=== PATIENT | female | born 1995 | race American Indian/Alaskan Native ===

== ENCOUNTER 2018-02-21 09:59 | Emergency (ER) | payer MEDICAID ==
[2018-02-21 09:59] VITALS: BMI 26.4
[2018-02-21] MEDS ORDERED: Sodium Chloride 0.9% 1,000 ML IV STA (10:23)
--- NOTE | 2018-02-21 10:32 | ED PDOC ---
Arrival/HPI - General Historian: Patient - History of Present Illness Time/Duration: 1-3 hours Symptom Onset: Sudden Activities at Onset: Light Context: Work <Juliana Gomez - Last Filed: 02/21/18 16:58> <German Walters - Last Filed: 02/21/18 18:54> - General Time Seen by Provider: 02/21/18 10:02 - History of Present Illness Narrative History of Present Illness (Text): 02/21/18 10:26 This is a 22 year old female with PMH of iron deficiency anemia presenting to the ED via ambulence for near syncope episode at work this morning. Patient was standing doing light work, had tunnel vision and diaphoresis and felt that she was going to pass out. Patient did not have LOC. She states she had similar episodes several times in the past due to her anemia. She recovered from a cold last week. Mother also has iron deficiency anemia. LMP was February 06. She denies vaginal bleeding, CP, SOB, abdominal pain, urinary symptoms, headaches, fevers, chills, nausea and vomiting. PMD is Dr. Poli Barreto (Juliana Gomez) Past Medical History - Provider Review Nursing Documentation Reviewed: Yes - Infectious Disease Hx of Infectious Diseases: None - Tetanus Immunization Tetanus Immunization: Unknown - Cardiac Hx Cardiac Disorders: No - Pulmonary Hx Respiratory Disorders: No - Neurological Hx Neurological Disorder: No - HEENT Hx HEENT Disorder: No - Renal Hx Renal Disorder: No - Endocrine/Metabolic Hx Endocrine Disorders: No - Hematological/Oncological Hx Anemia: Yes (Iron Deficient) - Integumentary Hx Dermatological Disorder: No - Musculoskeletal/Rheumatological Hx Musculoskeletal Disorders: No - Gastrointestinal Hx Gastrointestinal Disorders: No - Genitourinary/Gynecological Hx Genitourinary Disorders: No - Psychiatric Hx Psychophysiologic Disorder: No Hx Substance Use: Yes (marajuana (yesterday)) - Anesthesia Hx Anesthesia: No <Juliana Gomez - Last Filed: 02/21/18 16:58> Family/Social History - Physician Review Nursing Documentation Reviewed: Yes Family/Social History: Other (Mother has iron deficiency anemia) Smoking Status: Current Some Days Smoker Hx Alcohol Use: No Hx Substance Use: Yes (marajuana (yesterday)) <Juliana Gomez - Last Filed: 02/21/18 16:58> Allergies/Home Meds <Juliana Gomez - Last Filed: 02/21/18 16:58> <German Walters - Last Filed: 02/21/18 18:54> Allergies/Adverse Reactions: Allergies No Known Allergies Allergy (Verified 02/21/18 10:10) Review of Systems - Physician Review All systems were reviewed & negative as marked: Yes - Review of Systems Constitutional: Normal. absent: Fatigue, Fevers Eyes: Normal. absent: Vision Changes ENT: Normal. absent: Hearing Changes Respiratory: Normal. absent: SOB Cardiovascular: Normal. absent: Chest Pain, Palpitations Gastrointestinal: Normal Genitourinary Female: Normal. absent: Dysuria, Hematuria, Vaginal Bleeding Musculoskeletal: Normal. absent: Arthralgias Skin: Normal. absent: Rash Neurological: Normal. absent: Headache, Dizziness, Focal Weakness, Facial Droop Endocrine: Normal Hemo/Lymphatic: Normal Psychiatric: Normal. absent: Anxiety <Juliana Gomez - Last Filed: 02/21/18 16:58> Physical Exam Vital Signs Reviewed: Yes Temperature: Afebrile Blood Pressure: Normal Pulse: Regular Respiratory Rate: Normal Appearance: Positive for: Well-Appearing, Non-Toxic, Comfortable Pain Distress: None Mental Status: Positive for: Alert and Oriented X 3 Finger Stick Blood Glucose: 80 - Systems Exam Head: Present: Atraumatic, Normocephalic Pupils: Present: PERRL Extroacular Muscles: Present: EOMI Conjunctiva: Present: Normal Mouth: Present: Moist Mucous Membranes Neck: Present: Normal Range of Motion Respiratory/Chest: Present: Clear to Auscultation, Good Air Exchange. No: Respiratory Distress, Accessory Muscle Use Cardiovascular: Present: Regular Rate and Rhythm, Normal S1, S2. No: Murmurs Abdomen: No: Tenderness, Distention, Peritoneal Signs Back: Present: Normal Inspection Upper Extremity: Present: Normal Inspection. No: Cyanosis, Edema Lower Extremity: Present: Normal Inspection. No: Edema Neurological: Present: Speech Normal, Motor Func Grossly Intact, Normal Sensory Function Skin: Present: Warm, Dry, Other (mild conjunctival pallor noted in eyes). No: Rashes Psychiatric: Present: Alert, Oriented x 3, Normal Insight, Normal Concentration <Juliana Gomez Last Filed: 02/21/18 16:58> Vital Signs Temp Pulse Resp BP Pulse Ox 02/21/18 16:07 98.3 F 85 18 108/76 99 02/21/18 16:06 98.3 F 85 18 108/76 99 02/21/18 13:48 98.2 F 87 17 109/71 02/21/18 13:47 98.4 F 89 17 109/70 99 02/21/18 13:46 98.5 F 89 17 109/70 02/21/18 12:59 98 F 77 17 96/61 L 02/21/18 12:44 98 F 88 18 122/69 02/21/18 12:34 98 F 88 18 122/69 97 02/21/18 12:13 85 19 120/61 98 02/21/18 10:06 97.4 F L 93 H 17 103/51 L 96 Medical Decision Making <Juliana Gomez - Last Filed: 02/21/18 16:58> <German Walters - Last Filed: 02/21/18 18:54> ED Course and Treatment: 02/21/18 10:35 This is a 22 year old female with PMH of iron deficiency anemia presenting to the ED via ambulence for near syncope episode at work this morning. Differential: Iron deficiency anemia vs orthostatic hypotension vs dehydration vs arrhythmia Plan: -blood work -EKG -orthostatics -fluids Progress: 02/21/18 10:36 -stable vitals, resting comfortably in bed, afebrile. 02/21/18 12:15 EKG: rate of 80, normal sinus rhythm, MI of 152 and QRS of 84ms. (Juliana Gomez) 02/21/18 10:39 Patient Seen With Resident: In agreement with resident note which contains more details about the patient. Patient was seen and evaluated with resident. Came up with plan and treatment together.. 02/21/18 16:07 Patient received 1 unit of PRBC. She no longer had symptoms in the ED. She was walked around the ED with no lighteadedness or dizziness. No pain. She was given Iron and Colace Rx for her Iron deficiency anemia. She will f/u with her PMD in 1-2days. If symptoms worsen she will return to the ED. She was also advised to f/u with [facility] [employer] [employer] [facility] recommended by her PMD or Dr. Moncada. ( German Walters) - Lab Interpretations Lab Results: 02/21/18 10:35 02/21/18 10:35 Lab Results 02/21/18 11:25: Iron 22 L, TIBC 464, % Saturation 5 L 02/21/18 10:35: Blood Type A NEGATIVE, Antibody Screen Negative, Crossmatch See Detail, BBK History Checked Patient has bt 02/21/18 10:35: Sodium 141, Potassium 4.2, Chloride 103, Carbon Dioxide 25, Anion Gap 17, BUN 8, Creatinine 0.6 L, Est GFR ( Amer) > 60, Est GFR (Non -Af Amer) > 60, Random Glucose 96, Calcium 9.7, Total Bilirubin 0.3, AST 30, ALT 17, Alkaline Phosphatase 79, Total Protein 8.5 H, Albumin 4.6, Globulin 3.9 , Albumin/Globulin Ratio 1.2 02/21/18 10:35: WBC 8.5 D, RBC 4.46, Hgb 7.5 L, Hct 25.6 L, MCV 57.4 L, MCH 16.8 L, MCHC 29.3 L, RDW 20.1 H, Plt Count 853 H* D, MPV 8.7, Gran % 69.3 H, Lymph % (Auto) 24.7, [place] % (Auto) 5.4, Eos % (Auto) 0.2 L, Baso % (Auto) 0.4, Gran # 5.90, Lymph # (Auto) 2.1, [place] # (Auto) 0.5, Eos # (Auto) 0.0, Baso # ( Auto) 0.03 02/21/18 10:13: POC Glucose (mg/dL) 80 - Medication Orders Current Medication Orders: Discontinued Medications Sodium Chloride (Sodium Chloride 0.9%) 1,000 mls @ 999 mls/hr IV .Q1H1M STA Stop: 02/21/18 11:23 Last Admin: 02/21/18 10:46 Dose: 999 mls/hr eMAR Start Stop Document 02/21/18 10:46 [facility] (Rec: 02/21/18 10:48 [facility] [id number]) Intravenous Solution Start Date 02/21/18 Start Time 10:48 End Date 02/21/18 End time 11:50 Total Infusion Time 62 - PA / MULTIPLE DRUM SANDER / Resident Statement BREEZY has reviewed & agrees with the documentation as recorded. BREEZY has examined the patient and agrees with the treatment plan. <Juliana Gomez - Last Filed: 02/21/18 16:58> Disposition/Present on Arrival - Present on Arrival Any Indicators Present on Arrival: No History of DVT/PE: No History of Uncontrolled Diabetes: No Urinary Catheter: No History of Decub. Ulcer: No History Surgical Site Infection Following: None - Disposition Have Diagnosis and Disposition been Completed?: Yes Disposition Time: 17:00 Patient Plan: Discharge <Juliana Gomez - Last Filed: 02/21/18 16:58> - Present on Arrival Any Indicators Present on Arrival: No - Disposition Have Diagnosis and Disposition been Completed?: Yes Patient Plan: Discharge <German Walters - Last Filed: 02/21/18 18:54> - Disposition Diagnosis: Anemia, Near syncope Disposition: HOME/ ROUTINE Condition: IMPROVED Discharge Instructions (ExitCare): Anemia Caused by Low Iron, Syncope (Fainting ) Additional Instructions: NABOR EVANGELISTA, thank you for letting us take care of you today. Your provider was German Walters DO and you were treated for Anemia, Near Syncope. The emergency medical care you received today was directed at your acute symptoms. If you were prescribed any medication, please fill it and take as directed. It may take several days for your symptoms to resolve. Return to the Emergency Department if your symptoms worsen, do not improve, or if you have any other problems. Please contact your doctor or call one of the physicians/clinics you have been referred to that are listed on the Patient Visit Information form that is included in your discharge packet. Bring any paperwork you were given at discharge with you along with any medications you are taking to your follow up visit. Our treatment cannot replace ongoing medical care by a primary care provider outside of the emergency department. Thank you for allowing the [facility] team to be part of your care today. If you had an X-Ray or CT scan: A Radiologist will review the ED reading if any change in treatment is needed we will contact you. If you had a blood, urine, or wound culture: It will take several days for the results, if any change in treatment is needed we will contact you. If you had an STI test: It will take 48 hours for the results. Please call after 1 week if you have not heard back. Prescriptions: Docusate [Colace] 100 mg PO BID #60 cap Ferrous Sulfate 325 mg PO TID #90 tablet Referrals: Poli Barreto [Primary Care Provider] - Follow up with primary Albert Moncada MD [Staff Provider] - Follow up with primary Forms: [facility] (Lithuanian), WORK NOTE
[2018-02-21 10:57] LABS: BASO # 0.03 K/mm3 (0.0-2.0); BASO % 0.4 % (0.0-3.0); EOS % 0.2 % (1.5-5.0); GRAN # 5.9 (1.4-6.5); GRAN % 69.3 % (50.0-68.0); HEMOGLOBIN 7.5 g/dL (12.0-16.0); LYMPH # 2.1 (1.2-3.4); LYMPH % 24.7 % (22.0-35.0); MEAN CELL VOLUME 57.4 fl (80.0-105.0); MEAN CORPUSCULAR HEMOGLOBIN 16.8 pg (25.0-35.0); MEAN CORPUSCULAR HGB CONC 29.3 g/dl (31.0-37.0); MEAN PLATELET VOLUME 8.7 fl (7.0-11.0); MONO # 0.5 (0.1-0.6); MONO % 5.4 % (1.0-6.0); RBC 4.46 10^6/uL (3.5-6.1); RED CELL DISTRIBUTION WIDTH 20.1 % (11.5-14.5)
[2018-02-21 10:58] LABS: WHITE BLOOD COUNT 8.5 10^3/ul (4.5-11.0)
[2018-02-21 11:05] LABS: ALB/GLOB RATIO 1.2 (1.1-1.8); ALBUMIN 4.6 g/dL (3.0-4.8); ALT/SGPT 17 U/L (7-56); AST/SGOT 30 U/L (14-36); BLOOD UREA NITROGEN 8 mg/dL (7-21); CALCIUM 9.7 mg/dL (8.4-10.5); GFR AFRICAN-AMERICAN > 60; GFR NON-AFRICAN AMERICAN > 60
[2018-02-21 11:42] LABS: IRON 22 ug/dL (45-180)
[2018-02-21 11:51] LABS: % IRON SATURATION 5 % (20-55); TOTAL IRON BINDING CAPACITY 464 ug/dL (265-497)
[2018-02-21 13:47] VITALS: O2SAT 99
[2018-02-21 16:07] VITALS: BP 108/76; PULSE 85; RESP 18; TEMP 98.3
--- NOTE | 2018-02-21 20:14 | CARD ---
APPROVED REPORT Date of service: 02/21/2018 EKG Measurement Heart [id number] <Conclusion> Normal sinus rhythm Normal ECG
== END 2018-02-21 16:08 | disposition home or self-care (01) ==
LOC: ED 09:59
DX: R55 Syncope and collapse (principal); D64.9 Anemia, unspecified
CPT/HCPCS: 36430; 80053; 82948; 83540; 83550; 85025; 86850; 86900; 86920; 93005; 96360; 99285; J7030; P9016